=== PATIENT | male | born 1945 | race Caucasian/White ===

== ENCOUNTER 2016-12-15 09:57 | Emergency (ER) | payer MEDICARE, MEDICAID ==
[~2016-12-15] VITALS: Ht 185.4 cm; Wt 113.6 kg
[~2016-12-15 09:57] MED LIST: ASPI-664 PO; ATOR40TA68 PO; CARB1TAB47 PO; CHOL100062 PO; DOCU250C58 PO; ESCI20TA38 PO; GABA100C14 PO; ISOS10TA2 PO; LISI10TA2 PO; LORA-441 PO; METF500T4 PO; METO25TA7 PO; MIRT15TA5 PO; PANT40TA4 PO
[2016-12-15] MEDS ORDERED: ASPIRIN 325 MG TAB PO STA (09:59)
[2016-12-15 10:15] VITALS: Ht 185.4 cm; Wt 113.6 kg
[2016-12-15 10:21] VITALS: TEMP 98.6
[2016-12-15 10:29] LABS: ADD SCAN DIFF NO
[2016-12-15 10:34] LABS: BASOPHILS % 0.4 % (0.0-2.0); EOSINOPHILS # 0.1 10^3/ul (0.0-0.5); EOSINOPHILS % 1.9 % (0.0-7.0); HEMATOCRIT 35.9 % (42.0-52.0); HEMOGLOBIN 11.8 g/dl (14.0-18.0); LYMPHOCYTES # 2.1 10^3/ul (0.8-2.9); LYMPHOCYTES % 39.1 % (15.0-51.0); MEAN CORPUSCULAR HEMOGLOBIN 29.6 pg (29.0-33.0); MEAN CORPUSCULAR HGB CONC 32.9 g/dl (32.0-37.0); MEAN PLATELET VOLUME 10.6 fl (7.4-10.4); MONOCYTE # 0.5 10^3/ul (0.3-0.9); MONOCYTES % 8.5 % (0.0-11.0); NEUTROPHIL # 2.6 10^3/ul (1.6-7.5); NEUTROPHILS % 49.7 % (39.0-77.0); PLATELET COUNT 145 10^3/UL (140-415); RED BLOOD COUNT 3.99 10^6/ul (4.70-6.10); WHITE BLOOD COUNT 5.3 10^3/ul (4.8-10.8)
--- NOTE | 2016-12-15 10:35 | RADRPT ---
PROCEDURE: Chest x-ray CLINICAL INDICATION: Chest pain TECHNIQUE: Chest single view COMPARISON: 05/02/2016 FINDINGS: As before there is left chest dual lead pacemaker. Stable mild cardiomegaly and atherosclerotic aor tic calcification is seen. Ongoing mild interstitial CHF is identified. No confluent pneumonia see n. Costophrenic angles are sharp. IMPRESSION: 1. Mild cardiomegaly with ongoing mild interstitial CHF. 2. Atherosclerotic aortic calcification. 3. Pacemaker RPTAT: HH .Emanuel Day MD, Date Time Electronically viewed and signed by .Emanuel Day MD, on 12/15/2016 10:35 .W/
[2016-12-15 10:48] LABS: INR 0.9; PROTIME 12.1 Sec (12.2-14.2); PT RATIO 0.9
[2016-12-15 10:49] LABS: PARTIAL THROMBOPLASTIN TIME 28.8 Sec (25.0-35.0)
[2016-12-15 10:53] LABS: ANION GAP 16 (8-16); BLOOD UREA NITROGEN 21 mg/dl (7-20); CALCIUM 9.8 mg/dl (8.4-10.2); CARBON DIOXIDE 27 mmol/L (21-31); CHLORIDE 99 mmol/L (97-110); CREATININE 1.01 mg/dl (0.61-1.24); GLUCOSE 102 mg/dl (70-220); POTASSIUM 4.4 mmol/L (3.5-5.1); SODIUM 138 mmol/L (135-144)
[2016-12-15 11:05] LABS: B-TYPE NATRIURETIC PEPTIDE 1190 PG/ML (0-125)
[2016-12-15] MEDS ORDERED: METO25TA7 PO (11:06)
[2016-12-15] MEDS ORDERED: LISI10TA2 PO (11:06)
[2016-12-15] MEDS ORDERED: POTA20TA96 PO (11:07)
[2016-12-15] MEDS ORDERED: CHOL100062 PO (11:07)
[2016-12-15] MEDS ORDERED: FURO20TA3 PO (11:08)
[2016-12-15] MEDS ORDERED: OMEP20CA16 PO (11:09)
[2016-12-15 11:10] LABS: TROPONIN-I < 0.012 ng/ml (0.00-0.12)
[2016-12-15] MEDS ORDERED: GABA-528 PO (11:10)
[2016-12-15] MEDS ORDERED: FER325 PO (11:10)
[2016-12-15] MEDS ORDERED: morphine 4 MG/ML VIAL IV STA (12:05)
--- NOTE | 2016-12-15 14:20 | ERD ---
ER Documentation Chief Complaint Date/Time DATE: 12/15/16 TIME: 14:11 Chief Complaint 12/23 Chest pain x 1 hour HPI This 71-year-old male presents emergency room with substernal chest pain that does not radiate described as a pressure-like pain is been present for approximately an hour and 15 minutes now. He denies shortness of breath. Denies nausea and vomiting. I reviewed the patient's EMR and he does have a history of coronary artery disease and congestive heart failure. He had a negative Lexiscan done here in April ROS All systems reviewed and are negative except as per history of present illness. Medications Home Meds Reported Medications Ferrous Sulfate* (Ferrous Sulfate*) 325 Mg Tabec, 325 MG PO DAILY, TAB 12/15/16 Gabapentin* (Gabapentin*) 800 Mg Tablet, 800 MG PO TID, #90 TAB 12/15/16 Omeprazole* (Omeprazole*) 20 Mg Capsule.dr, 20 MG PO DAILY, #30 CAP 12/15/16 Furosemide* (Furosemide*) 20 Mg Tablet, 20 MG PO BID, #30 TAB 12/15/16 Potassium Chloride* (Potassium Chloride*) 20 Meq Tablet.er, 10 MEQ PO DAILY, TAB.SA 12/15/16 Cholecalciferol* (Vitamin D3*) 1,000 Unit Tablet, 1000 UNIT PO DAILY, TAB 12/15/16 Lisinopril* (Lisinopril*) 10 Mg Tablet, 10 MG PO DAILY, #30 TAB 12/15/16 Metoprolol Succinate* (Toprol XL*) 25 Mg Tab.sr.24h, 25 MG PO DAILY, #30 TAB 12/15/16 Metformin Hcl* (Metformin Hcl*) 500 Mg Tablet, 500 MG PO WITH BREAKFAST, #30 TAB 05/02/16 Atorvastatin* (Atorvastatin*) 40 Mg Tablet, 40 MG PO QHS, #30 TAB 05/02/16 Docusate Sodium* (Colace*) 250 Mg Capsule, 250 MG PO BID, #60 CAP 05/02/16 Pantoprazole* (Pantoprazole*) 40 Mg Tablet.dr, 40 MG PO DAILY, TAB 05/02/16 Carbidopa/Levodopa (CARBIDOPA-LEVO 25-250 MG ODT) 1 Each Tab.rapdis, 1 TAB PO QID, #90 TAB 05/02/16 Isosorbide Dinitrate* (Isosorbide Dinitrate*) 10 Mg Tablet, 10 MG PO TID, TAB 05/02/16 Aspirin* (Aspirin* EC) 81 Mg Tablet.dr, 81 MG PO DAILY, TAB 05/02/16 Discontinued Reported Medications Mirtazapine* (Mirtazapine*) 15 Mg Tablet, 15 MG PO HS, TAB 05/02/16 Cholecalciferol* (Vitamin D3*) 1,000 Unit Tablet, 2000 UNIT PO DAILY, TAB 05/02/16 Escitalopram Oxalate* (Escitalopram Oxalate*) 20 Mg Tablet, 20 MG PO DAILY, #30 TAB 05/02/16 Discontinued Scripts Lorazepam* (Ativan*) 0.5 Mg Tablet, 1 MG PO Q12 Y for ANXIETY, #30 TAB Prov:MARLO ROBLEDO MD 05/06/16 Gabapentin* (Gabapentin*) 100 Mg Capsule, 200 MG PO TID for 30 Days, CAP Prov:MARLO ROBLEDO MD 05/06/16 Allergies Allergies: Coded Allergies: No Known Allergies (Verified Allergy, Mild, 12/15/16) PMhx/Soc History of Surgery: Yes (CABG 15 years ago. Pacemaker) Anesthesia Reaction: No Hx Neurological Disorder: No Hx Respiratory Disorders: No Hx Cardiac Disorders: Yes (HTN) Hx Psychiatric Problems: No Hx Miscellaneous Medical Probl: No Hx Alcohol Use: Yes (Distant past.) Hx Substance Use: No Hx Tobacco Use: Yes (Distant past.) Smoking Status: Current some day smoker Physical Exam Vitals Vital Signs Date Time Temp Pulse Resp B/P Pulse Ox O2 Delivery O2 Flow Rate FiO2 12/15/16 13:01 87 17 147/76 100 Room Air 12/15/16 10:21 98.6 90 16 145/87 100 Room Air 12/15/16 10:20 Nasal Cannula 3 12/15/16 10:15 98.6 90 16 145/87 100 Physical Exam Const: [] No distress Head: Atraumatic Eyes: Normal Conjunctiva ENT: Normal External Ears, Nose and Mouth. Neck: Full range of motion..~ No meningismus. Resp: Clear to auscultation bilaterally, no rales Cardio: Regular rate and rhythm, no murmurs Abd: Soft, non tender, non distended. Normal bowel sounds Skin: No petechiae or rashes Back: No midline or flank tenderness Ext: No cyanosis, or edema Neur: Awake and alert and oriented 3, no focal deficits Psych: Normal Mood and Affect Result Diagram: 12/15/16 1018 12/15/16 1018 Results 24 hrs Laboratory Tests Test 12/15/16 10:18 12/15/16 12:25 White Blood Count 5.310^3/ul Red Blood Count 3.9910^6/ul Hemoglobin 11.8g/dl Hematocrit 35.9% Mean Corpuscular Volume 90.0fl Mean Corpuscular Hemoglobin 29.6pg Mean Corpuscular Hemoglobin Concent 32.9g/dl Red Cell Distribution Width 14.0% Platelet Count 09115^3/UL Mean Platelet Volume 10.6fl Neutrophils % 49.7% Lymphocytes % 39.1% Monocytes % 8.5% Eosinophils % 1.9% Basophils % 0.4% Nucleated Red Blood Cells % 0.0/100WBC Neutrophils # 2.610^3/ul Lymphocytes # 2.110^3/ul Monocytes # 0.510^3/ul Eosinophils # 0.110^3/ul Basophils # 0.010^3/ul Nucleated Red Blood Cells # 0.010^3/ul Prothrombin Time 12.1Sec Prothrombin Time Ratio 0.9 INR International Normalized Ratio 0.90 Activated Partial Thromboplast Time 28.8Sec Sodium Level 138mmol/L Potassium Level 4.4mmol/L Chloride Level 99mmol/L Carbon Dioxide Level 27mmol/L Anion Gap 16 Blood Urea Nitrogen 21mg/dl Creatinine 1.01mg/dl Glucose Level 102mg/dl Calcium Level 9.8mg/dl Troponin I < 0.012ng/ml < 0.012ng/ml B-Type Natriuretic Peptide 1190PG/ML Current Medications Medications (Trade) Dose Ordered Sig/Lele Route PRN Reason Start Time Stop Time Status Last Admin Dose Admin Aspirin (Aspirin) 325 mg ONCE STAT PO 12/15/16 09:59 12/15/16 10:02 DC 12/15/16 10:27 Morphine Sulfate (morphine) 4 mg ONCE STAT IV 12/15/16 12:05 12/15/16 12:06 DC 12/15/16 12:15 Procedures/MDM 71-year-old male with multiple risk factors for acute coronary syndrome with chest pain. His pain does not seem cardiac at this time. Repeat troponin drawn 4-1/2 hours after the patient's initiation of chest pain is negative. Does have evidence of mild congestive heart failure but does not have shortness of breath, tachypnea or hypoxia. States that he has Lasix at home that he takes. I called his primary care doctor, Dr. Robledo regarding admission. He states that the patient was worked up admission last week for chest pain that he presents frequently for chest pain and has a fondness for narcotic pain medication. Given the patient's recent negative cardiac studies he does not recommend admission. I told him I will get a repeat troponin to make sure it is negative greater than 4 hours out of the onset of chest pain and he agrees with this plan. Had Kwesi given the patient morphine. He had been given aspirin. He did receive 3 nitroglycerin in the ambulance without relief of chest pain. He did believe that the morphine reduced his chest pain significantly. I told him to return to emergency room immediately if he experiences return of his chest pain. EKG interpretation #2: Patient with demand pacemaker otherwise has atrial fibrillation, rate is 66, no ST elevations or depressions to suggest acute ischemia. Nonspecific ST and T-wave abnormality. EKG interpretation #1: Demand pacemaker with generalized rhythm of atrial fibrillation with some premature complexes, no ST elevations or depressions to suggest acute ischemia, it service delivery manager interpretation: Atrial fibrillation with occasional premature complexes with no other arrhythmia Chest x-ray interpretation: Engorgement of pulmonary vasculature sure this with mild CHF, poor inspiration, no infiltrates, no pneumothorax, no fractures Departure Diagnosis: Primary Impression: Chest pain Additional Impression: CHF (congestive heart failure) Condition: Stable Patient Instructions: Chest Pain, Uncertain Cause Additional Instructions: Call your primary care doctor TODAY for an appointment during the next 2-3 days.See the doctor sooner or return here if your condition worsens before your appointment time. FALGUNI DUTTA DO Dec 15, 2016 14:20
[2016-12-15 15:24] VITALS: BP 157/91; PULSE 80; RESP 17
== END 2016-12-15 15:25 | disposition home or self-care (01) ==
LOC: E/R 09:57
DX: R07.9 Chest pain, unspecified (principal); I50.9 Heart failure, unspecified; I10 Essential (primary) hypertension; F17.210 Nicotine dependence, cigarettes, uncomplicated; Z79.82 Long term (current) use of aspirin; Z79.84 Long term (current) use of oral hypoglycemic drugs; Z95.0 Presence of cardiac pacemaker; Z95.1 Presence of aortocoronary bypass graft
CPT/HCPCS: 71010; 80048; 83880; 84484; 85025; 85610; 85730; J2270; 36415; 93005; 96374

== ENCOUNTER 2016-12-15 21:31 | Observation (INO) | payer MEDICARE, MEDICAID ==
[~2016-12-15] VITALS: Ht 185.4 cm; Wt 108.8 kg
[~2016-12-15 21:31] MED LIST changes: +FER325 PO; +FURO20TA3 PO; +GABA-528 PO; +OMEP20CA16 PO; +POTA20TA96 PO
[2016-12-15 22:37] LABS: ADD SCAN DIFF NO
[2016-12-15 22:39] LABS: BASOPHILS % 0.6 % (0.0-2.0); EOSINOPHILS % 0.2 % (0.0-7.0); HEMATOCRIT 34.9 % (42.0-52.0); HEMOGLOBIN 11.3 g/dl (14.0-18.0); LYMPHOCYTES # 1.2 10^3/ul (0.8-2.9); LYMPHOCYTES % 22.9 % (15.0-51.0); MEAN CORPUSCULAR HGB CONC 32.4 g/dl (32.0-37.0); MEAN CORPUSCULAR VOLUME 89.5 fl (82.0-101.0); MEAN PLATELET VOLUME 10.6 fl (7.4-10.4); MONOCYTE # 0.4 10^3/ul (0.3-0.9); MONOCYTES % 7.4 % (0.0-11.0); NEUTROPHIL # 3.6 10^3/ul (1.6-7.5); NEUTROPHILS % 68.7 % (39.0-77.0); PLATELET COUNT 146 10^3/UL (140-415); RED CELL DISTRIBUTION WIDTH 14.1 % (11.5-14.5); WHITE BLOOD COUNT 5.2 10^3/ul (4.8-10.8)
[2016-12-15 22:54] LABS: INR 0.96; PROTIME 12.8 Sec (12.2-14.2)
[2016-12-15 22:55] LABS: PARTIAL THROMBOPLASTIN TIME 27.5 Sec (25.0-35.0)
[2016-12-15 22:57] LABS: ANION GAP 15 (8-16); BLOOD UREA NITROGEN 17 mg/dl (7-20); CALCIUM 9.4 mg/dl (8.4-10.2); CARBON DIOXIDE 26 mmol/L (21-31); CHLORIDE 100 mmol/L (97-110); CREATININE 0.89 mg/dl (0.61-1.24); GLUCOSE 134 mg/dl (70-220); POTASSIUM 3.8 mmol/L (3.5-5.1); SODIUM 137 mmol/L (135-144)
[2016-12-15 23:08] LABS: TROPONIN-I < 0.012 ng/ml (0.00-0.12)
--- NOTE | 2016-12-15 23:23 | RADRPT ---
PROCEDURE: Portable chest x-ray. CLINICAL INDICATION: Chest pain. TECHNIQUE: Portable AP view of the chest. COMPARISON: 05/02/2016. FINDINGS: No pulmonary edema or conolidation is identified. The patient is status post median sternotomy and C ABG. The cardiac silhouette is magnified. There are aortic calcifications. There is a left chest c ardiac pacemaker. No pleural effusion is seen. There is no pneumothorax. IMPRESSION: 1. No evidence of acute cardiopulmonary disease. 2. Aortic atherosclerosis. 3. Status post CABG. 4. Cardiac pacemaker. RPTAT: HTAR .Augie Pleitez MD, Date Time Electronically viewed and signed by .Augie Pleitez MD, on 12/15/2016 23:22 .R/
--- NOTE | 2016-12-15 23:35 | ERA ---
ER Documentation Chief Complaint Date/Time DATE: 12/15/16 TIME: 23:33 Chief Complaint PT HERE FOR LEFT SIDE CP AND ANXIETY , DC'D FROM [facility] TODAY HPI This is a 71-year-old male presents to the emergency room for evaluation of chest pain. This patient was seen earlier in the emergency room and had 2 troponins drawn which were negative and the patient was discharged back to his [facility]. The patient states that his chest pain is returned and it is centralized with radiation to his left arm. The patient denies any shortness of breath and came to the emergency room today for reevaluation. ROS All systems reviewed and are negative except as per history of present illness. Medications Home Meds Reported Medications Ferrous Sulfate* (Ferrous Sulfate*) 325 Mg Tabec, 325 MG PO DAILY, TAB 12/15/16 Gabapentin* (Gabapentin*) 800 Mg Tablet, 800 MG PO TID, #90 TAB 12/15/16 Omeprazole* (Omeprazole*) 20 Mg Capsule.dr, 20 MG PO DAILY, #30 CAP 12/15/16 Furosemide* (Furosemide*) 20 Mg Tablet, 20 MG PO BID, #30 TAB 12/15/16 Potassium Chloride* (Potassium Chloride*) 20 Meq Tablet.er, 10 MEQ PO DAILY, TAB.SA 12/15/16 Cholecalciferol* (Vitamin D3*) 1,000 Unit Tablet, 1000 UNIT PO DAILY, TAB 12/15/16 Lisinopril* (Lisinopril*) 10 Mg Tablet, 10 MG PO DAILY, #30 TAB 12/15/16 Metoprolol Succinate* (Toprol XL*) 25 Mg Tab.sr.24h, 25 MG PO DAILY, #30 TAB 12/15/16 Metformin Hcl* (Metformin Hcl*) 500 Mg Tablet, 500 MG PO WITH BREAKFAST, #30 TAB 05/02/16 Atorvastatin* (Atorvastatin*) 40 Mg Tablet, 40 MG PO QHS, #30 TAB 05/02/16 Docusate Sodium* (Colace*) 250 Mg Capsule, 250 MG PO BID, #60 CAP 05/02/16 Pantoprazole* (Pantoprazole*) 40 Mg Tablet.dr, 40 MG PO DAILY, TAB 05/02/16 Carbidopa/Levodopa (CARBIDOPA-LEVO 25-250 MG ODT) 1 Each Tab.rapdis, 1 TAB PO QID, #90 TAB 05/02/16 Isosorbide Dinitrate* (Isosorbide Dinitrate*) 10 Mg Tablet, 10 MG PO TID, TAB 05/02/16 Aspirin* (Aspirin* EC) 81 Mg Tablet.dr, 81 MG PO DAILY, TAB 05/02/16 Discontinued Reported Medications Mirtazapine* (Mirtazapine*) 15 Mg Tablet, 15 MG PO HS, TAB 05/02/16 Cholecalciferol* (Vitamin D3*) 1,000 Unit Tablet, 2000 UNIT PO DAILY, TAB 05/02/16 Escitalopram Oxalate* (Escitalopram Oxalate*) 20 Mg Tablet, 20 MG PO DAILY, #30 TAB 05/02/16 Discontinued Scripts Lorazepam* (Ativan*) 0.5 Mg Tablet, 1 MG PO Q12 Y for ANXIETY, #30 TAB Prov:MARLO ROBLEDO MD 05/06/16 Gabapentin* (Gabapentin*) 100 Mg Capsule, 200 MG PO TID for 30 Days, CAP Prov:MARLO ROBLEDO MD 05/06/16 Allergies Allergies: Coded Allergies: No Known Allergies (Verified Allergy, Mild, 12/15/16) PMhx/Soc History of Surgery: Yes (CABG 15 years ago. Pacemaker) Anesthesia Reaction: No Hx Neurological Disorder: No Hx Respiratory Disorders: No Hx Cardiac Disorders: Yes (HTN) Hx Psychiatric Problems: No Hx Miscellaneous Medical Probl: No Hx Alcohol Use: Yes (Distant past.) Hx Substance Use: No Hx Tobacco Use: Yes (Distant past.) Smoking Status: Former smoker Physical Exam Vitals Vital Signs Date Time Temp Pulse Resp B/P Pulse Ox O2 Delivery O2 Flow Rate FiO2 12/15/16 22:29 74 17 127/67 99 Room Air 12/15/16 22:27 Nasal Cannula 2 12/15/16 21:43 98.6 94 20 131/79 98 Physical Exam INITIAL VITAL SIGNS: Reviewed by me GENERAL: The patient is well developed and appropriate for usual state of health in no apparent distress HEENT: Pupils equal, round, and reactive to light. EOMI. There is no scleral icterus. NECK: C-spine is soft and supple, there is no meningismus. There is no cervical lymphadenopathy. LUNGS: Clear to auscultation bilaterally. There are no rales, wheezes or rhonchi. HEART: Regular rate and rhythm, no murmurs, clicks, rubs or gallops. ABDOMEN: Soft, non-tender, non-distended. There are bowel sounds in all four quadrants. No rebound or guarding. EXTREMITIES: There is no peripheral cyanosis or edema. No focal swelling or erythema. NEUROLOGICAL: The patient moves all four extremities with 5/5 strength. Cranial nerves II - XII are intact. Normal gait. Alert and oriented SKIN: There is no apparent rash or petechiae. HEME/LYMPHATIC: There is no evidence of excessive bruising or lymphedema. PSYCHIATRIC: The patient does not appear anxious or depressed. Result Diagram: 12/15/16222412/15/162224 Results 24 hrs Laboratory Tests Test 12/15/16 22:25 White Blood Count 5.210^3/ul Red Blood Count 3.9010^6/ul Hemoglobin 11.3g/dl Hematocrit 34.9% Mean Corpuscular Volume 89.5fl Mean Corpuscular Hemoglobin 29.0pg Mean Corpuscular Hemoglobin Concent 32.4g/dl Red Cell Distribution Width 14.1% Platelet Count 95630^3/UL Mean Platelet Volume 10.6fl Neutrophils % 68.7% Lymphocytes % 22.9% Monocytes % 7.4% Eosinophils % 0.2% Basophils % 0.6% Nucleated Red Blood Cells % 0.0/100WBC Neutrophils # 3.610^3/ul Lymphocytes # 1.210^3/ul Monocytes # 0.410^3/ul Eosinophils # 0.010^3/ul Basophils # 0.010^3/ul Nucleated Red Blood Cells # 0.010^3/ul Prothrombin Time 12.8Sec Prothrombin Time Ratio 1.0 INR International Normalized Ratio 0.96 Activated Partial Thromboplast Time 27.5Sec Sodium Level 137mmol/L Potassium Level 3.8mmol/L Chloride Level 100mmol/L Carbon Dioxide Level 26mmol/L Anion Gap 15 Blood Urea Nitrogen 17mg/dl Creatinine 0.89mg/dl Glucose Level 134mg/dl Calcium Level 9.4mg/dl Troponin I < 0.012ng/ml Procedures/[facility] EKG: Rate/Rhythm: [Normal Sinus Rhythm] QRS, ST, T-waves: [No changes consistent w/ acute ischemia] Impression: [No evidence of ischemia or arrhythmia] Chest X-ray 1V Interpreted by me: Soft Tissue: No acute abnormalities Bones: No acute abnormalities Mediastinum/Cardiac Silhouette/Lungs: [No acute abnormalities] This 71-year-old male presents to the emergency room for evaluation of chest pain. He was seen earlier in the emergency room had negative troponins and was discharged. When I evaluated this patient he was hemodynamically stable. His first troponin is negative, EKG is nonischemic. Chest x-ray is clear. However given his age and his repeat visit to the emergency room within a 12 hour period for the same complaint this patient will be placed in for admission. I did speak to his primary care physician, Dr. Robledo who agrees the patient can be admitted at this time to telemetry under observation for serial troponins Smoking Cessation Therapy: Pt. was lectured for greater than 3 minutes on the health risks of continued smoking and the benefits of cessation. Departure Diagnosis: Primary Impression: Chest pain Additional Impressions: Normocytic anemia Tobacco abuse Condition: Stable CINDY NAZARIO DO Dec 15, 2016 23:35
[2016-12-16] VITALS (9 sets, daily range): BP systolic 134–144; BP diastolic 65–86; PULSE 63–86; RESP 18–20; Ht 185.4 cm; Wt 108.8 kg
[2016-12-16] MEDS ORDERED: NACL 0.9% 3 ML SYG IV SCH
[2016-12-16] MEDS ORDERED: ZOLPIDEM 5 MG TAB PO PRN
[2016-12-16] MEDS ORDERED: NITROGLYCERIN (SL) 0.4 MG TAB SL PRN
[2016-12-16] MEDS ORDERED: MAGNESIUM HYDROXIDE 30ML CUP PO PRN
[2016-12-16] MEDS ORDERED: ACETAMINOPHEN 325 MG TAB PO PRN ×2
[2016-12-16] MEDS ORDERED: ONDANSETRON 4 MG INJ IV PRN
[2016-12-16] MEDS ORDERED: DOCUSATE SODIUM 100 MG CAP PO PRN
[2016-12-16] MEDS ORDERED: LORAZEPAM 0.5 MG TAB PO ONE (00:30)
[2016-12-16] MEDS: HYDROmorphONE 1 MG/ML SYG IV PRN ×5 (01:00→20:44)
[2016-12-16] MEDS ORDERED: LORAZEPAM 1 MG TAB PO ONE (05:00)
[2016-12-16 06:06] LABS: CREATINE KINASE 65 IU/L (23-200)
[2016-12-16 06:31] LABS: CK-MB 1.59 ng/ml (0.0-2.4); TROPONIN-I < 0.012 ng/ml (0.00-0.12)
[2016-12-16] MEDS: PANTOPRAZOLE (EC) 40 MG TAB PO SCH (06:35)
[2016-12-16] MEDS: DOCUSATE SODIUM 250 MG CAP PO SCH ×2 (09:39→20:49)
[2016-12-16] MEDS: ONDANSETRON 4 MG INJ IV PRN (09:39)
[2016-12-16] MEDS: ASPIRIN (EC) 81 MG TAB PO SCH (09:39)
[2016-12-16] MEDS: LISINOPRIL 10 MG TAB PO SCH (09:39)
[2016-12-16] MEDS: METOPROLOL (XL) 25 MG TAB PO SCH (09:40)
[2016-12-16] MEDS: ENOXAPARIN 40 MG/0.4 ML SYG SC SCH (09:43)
[2016-12-16] MEDS: LORAZEPAM 0.5 MG TAB PO PRN ×2 (09:44→21:37)
[2016-12-16] MEDS: oxyCODONE 15 MG TAB PO PRN ×3 (10:36→22:33)
[2016-12-16] MEDS: CHOLECALCIFEROL 1,000 UNIT TAB PO SCH (12:21)
[2016-12-16] MEDS: GABAPENTIN 400 MG CAP PO SCH ×3 (12:21→20:49)
[2016-12-16] MEDS: ISOSORBIDE DINITRATE 10 MG TAB PO SCH ×2 (12:22→20:49)
[2016-12-16 12:30] LABS: CREATINE KINASE 59 IU/L (23-200)
[2016-12-16 12:44] LABS: CK-MB 1.32 ng/ml (0.0-2.4); TROPONIN-I < 0.012 ng/ml (0.00-0.12)
--- NOTE | 2016-12-16 15:13 | HP ---
DATE OF ADMISSION: 12/15/2016 REASON FOR ADMISSION: Chest pain, rule out acute coronary syndrome. HISTORY OF PRESENT ILLNESS: The patient is a very unfortunate 71-year-old obese male with history of coronary artery disease, status post CABG, history of diabetes mellitus, diabetic neurop athy on high dose narcotics given by his pain specialist, as he has a tendency to be opioid dependen t. Also, history of atrial fibrillation and recurrent falls. He is not on full anticoagulation sec ondary to falls in the past. We only placed him on aspirin. The patient also has history of mild C KD, CHF, peripheral vascular disease, history of skin cancer and hypertension, who currently resides at the assisted living facility at [facility]. The patient was in usual state of healt h up until the day of admission when he was complaining of substernal chest pain. He was brought in to the ER, troponin x2 was negative and he was discharged after we reviewed his history and he had a negative nuclear stress test back in April 2016. At that time, it shows no evidence of stress-in duced ischemia with EF of 64%. The patient returned back to the assisted living facility and compla ined of chest pain, so he was brought in again the same day back to the ER. This time, the ER physi jasmine felt the need to admit the patient, despite ongoing negative troponin. Upon evaluation of the patient, patient continues to complain of vague chest pain, also complained of a neuropathy of the h ands and feet, which is chronic in nature. Again, he somewhat has a tendency to be dependent on opi oids and is requesting Dilaudid and oxycodone throughout the clock. Otherwise, he denies any fever or chills, denies any shortness of breath. Denies any weakness or numbness. The patient is admitte d for further care. PAST MEDICAL HISTORY: Includes coronary artery disease, status post CABG, history of diabetes sky itus, diabetic neuropathy, atrial fibrillation, recurrent falls, CKD, CHF, peripheral vascular disea se, skin cancer and hypertension, also some psych problems. SURGICAL HISTORY: Coronary artery bypass graft, skin cancer excision. ALLERGIES: NO KNOWN DRUG ALLERGIES. FAMILY HISTORY: Noncontributory. SOCIAL HISTORY: He is a former pipe smoker. Patient previously has used cocaine. He is retired. Lives in assisted living facility. MEDICATIONS: Include the followin. Aspirin 81 mg daily. 2. Isosorbide dinitrate 10 mg t.i.d. 3. Carbidopa/levodopa 25/250 q.i.d. 4. Protonix 40 mg daily. 5. Colace 250 mg b.i.d. 6. Atorvastatin 40 mg daily at night. 7. Metformin 500 mg q. breakfast. 8. Metoprolol 75 mg daily. 9. Lisinopril 10 mg daily. 10. Vitamin D3 12,000 daily. 11. KCl 10 mEq daily. 12. Lasix 20 mg b.i.d. 13. Omeprazole 20 mg daily. 14. Gabapentin 800 mg t.i.d. 15. Ferrous sulfate 325 daily. Some of these medications, I think are not the correct ones. This is I think an old reconciliation . PHYSICAL EXAMINATION: VITAL SIGNS: Temperature is 98.3, pulse 77, respiration is 19, blood pressure 138/83, saturation is 98% on room air. GENERAL: The patient is in no distress. The patient is pale. He has multiple skin lesions of the scalp. CARDIOVASCULAR: S1 and S2 irregularly irregular. LUNGS: Decreased bilaterally, otherwise clear. ABDOMEN: Soft, distended. EXTREMITIES: There is trace edema of the lower extremities. EKG: Shows atrial fibrillation with PACs, cannot rule out anterior infarct, age undetermined, at 73 beats per minute. Upon evaluation of previous imaging tests, chest x-ray done yesterday on admissi on shows no evidence of acute cardiopulmonary disease, aortic atherosclerosis, status post CABG, car diac pacemaker. Stress test shows on 05/04/2016 shows no evidence of stress induced ischemia, no wa ll abnormalities, left ventricular ejection fraction at 64%. ASSESSMENT AND PLAN: This is a very unfortunate 71-year-old obese male with history of di abetes mellitus, neuropathy, coronary artery disease, status post coronary artery bypass grafting, h istory of pacemaker, presented with chest pain. 1. Chest pain. Serial troponins are negative. Recent stress test is negative. This may be angina and musculoskeletal pain, etc. Because of his risk factors and the current complaints, we will con sult cardiology for further recommendations. Continue aspirin, beta blockers, nitroglycerin as need ed, O2 support. 2. Atrial fibrillation, rate controlled, not fully anticoagulated secondary to falls. Continue asp irin for now. Continue beta blockers. 3. Parkinsonism. Continue Sinemet. 4. Peripheral neuropathy. The patient is on opioids. The patient will be placed on Neurontin as w ell or Lyrica and we will follow. 5. Diabetes mellitus. He has been well controlled even without medications. Observe insulin slidi ng scale for now. May resume his metformin upon discharge. 6. Psychiatric, previously has been on Lexapro. 7. Anemia. Hemoglobin and hematocrit outpatient followup is advised. 8. The patient will be placed on deep vein thrombosis prophylaxis and gastrointestinal prophylaxis. We will follow. Dictated By: MARLO WILKINS/RADHA Conf#: [id number] DID#: [id number]
[2016-12-16] MEDS: ESCITALOPRAM 10 MG TAB PO SCH (16:33)
[2016-12-16] MEDS ORDERED: ATORVASTATIN 40 MG TAB PO SCH (21:00)
[2016-12-17] VITALS (7 sets, daily range): BP systolic 119–137; BP diastolic 65–74; PULSE 59–104; RESP 18–19
[2016-12-17] MEDS: HYDROmorphONE 1 MG/ML SYG IV PRN ×2 (01:55→09:08)
[2016-12-17] MEDS: PANTOPRAZOLE (EC) 40 MG TAB PO SCH (05:26)
[2016-12-17] MEDS: oxyCODONE 15 MG TAB PO PRN ×2 (05:27→11:33)
[2016-12-17] MEDS: DOCUSATE SODIUM 250 MG CAP PO SCH (09:06)
[2016-12-17] MEDS: GABAPENTIN 400 MG CAP PO SCH ×2 (09:06→12:02)
[2016-12-17] MEDS: LISINOPRIL 10 MG TAB PO SCH (09:06)
[2016-12-17] MEDS: ASPIRIN (EC) 81 MG TAB PO SCH (09:06)
[2016-12-17] MEDS: CHOLECALCIFEROL 1,000 UNIT TAB PO SCH (09:06)
[2016-12-17] MEDS: LORAZEPAM 0.5 MG TAB PO PRN (09:06)
[2016-12-17] MEDS: ESCITALOPRAM 10 MG TAB PO SCH (09:06)
[2016-12-17] MEDS: ISOSORBIDE DINITRATE 10 MG TAB PO SCH ×2 (09:07→12:02)
[2016-12-17] MEDS: METOPROLOL (XL) 25 MG TAB PO SCH (09:07)
[2016-12-17] MEDS: ONDANSETRON 4 MG INJ IV PRN (09:08)
[2016-12-17] MEDS: ENOXAPARIN 40 MG/0.4 ML SYG SC SCH (09:12)
[2016-12-17] MEDS ORDERED: LORAZEPAM 0.5 MG TAB PO PRN (12:30)
--- NOTE | 2016-12-17 12:32 | PDOCDIS ---
Discharge Instructions CONDITION Patient Condition: Stable ACTIVITY: Activity Restrictions: Slowly Increase Activity FOLLOW UP/APPOINTMENTS Appointments follow up with Dr. Blackman for pacemaker check, see prescriptions and reconciliation MARLO ROMAN MD Dec 17, 2016 12:32
[2016-12-17] MEDS ORDERED: FURO20TA3 PO (12:34)
[2016-12-17] MEDS ORDERED: LORA-441 PO (12:34)
[2016-12-17] MEDS ORDERED: ESCI10TA48 PO (12:34)
[2016-12-17] MEDS ORDERED: ASPI325T4 PO (12:39)
--- NOTE | 2016-12-17 19:04 | DS ---
DATE OF ADMISSION: 12/15/2016 DATE OF DISCHARGE: 12/17/2016 REASON FOR ADMISSION: Chest pain, rule out acute coronary syndrome. HOSPITAL COURSE: The patient is a 71-year-old male with history of coronary artery diseas e, status post CABG, history of diabetes mellitus, diabetic neuropathy on high dose narcotics given by his pain specialist and has a tendency for opiate dependency. Also, history of atrial fibrillati on with frequent falls, not fully anticoagulated because of that, as he was admitted multiple times in the past for injuries regarding falls. He has been now on aspirin. Also, he has history of mild CKD, CHF, peripheral vascular disease, skin cancer, hypertension. The patient currently resides at [facility] living [facility]. In addition, he has a pacemaker. The patient has been compl aining of chest pain. It was decided to send him to the hospital. Troponins were negative, but it was decided to admit him, as he presented to the ER twice in the same day. Upon admission, serial t roponins remained negative. I consulted Dr. Blackman. The patient feels that his tremor and numbness is likely related to neuropathy from his diabetes and anxiety. The patient acknowledges anxiety an d requests medications, so I started the patient on Lexapro 10 mg daily and Ativan p.r.n. The patie nt is overall feeling better, so my plan is to discharge him. The patient was placed under observat ion. Temperature 98.3, pulse 66, respirations 19, blood pressure 119/65, saturation 97% on room air . The patient did undergo a nuclear stress test back in April 2016 and it was completely normal. Per cardiology, no further cardiac workup is needed. I will adjust some of his medications. We wi ll increase the aspirin from 81 to 325, but will not fully anticoagulate him because of the falls. The patient is tolerating his diet and overall feeling better. DISCHARGE MEDICATIONS: The patient will be discharged back to assisted living facility with the [facility] medications: 1. Aspirin 325 daily. 2. Lexapro 10 mg daily. 3. Ativan 0.5 q.8h. p.r.n. for anxiety. 4. Lipitor 40 mg at bedtime. 5. Carbidopa/levodopa 25/250 q.i.d. 6. Vitamin D3 at 1000 daily. 7. Colace 250 b.i.d. 8. Ferrous sulfate ____ daily. 9. Gabapentin 800 t.i.d. 10. Isosorbide dinitrate 10 mg t.i.d. 11. Lisinopril 10 mg daily. 12. Metoprolol 25 daily. 12. Omeprazole 20 mg daily. 13. Protonix 40 mg daily. 14. Lasix 20 mg daily. FINAL DIAGNOSES: 1. Chest pain, rule out acute coronary syndrome. 2. Paroxysmal atrial fibrillation. 3. Morbidly obese state with a BMI of 31.6. 4. History of diabetes mellitus, controlled without medication. 5. Severe diabetic neuropathy. 6. Anxiety disorder. 7. Congestive heart failure. 8. History of coronary artery disease, status post coronary artery bypass graft. 9. Recurrent falls. 10. History of skin cancer. CONDITION ON DISCHARGE: The patient discharged in fair condition. DIET: Two-gram sodium. ACTIVITY: As tolerated. Fall precautions. DISCHARGE INSTRUCTIONS: Any recurrent problems, to call 911 or go to nearest emergency department. Dictated By: MARLO WILKINS/RADHA Conf#: [id number] DID#: [id number]
--- NOTE | 2016-12-18 08:17 | CONS ---
DATE OF ADMISSION: 12/15/2016 DATE OF CONSULTATION: 12/17/2016 TYPE OF CONSULTATION: Pulmonary. REFERRING PHYSICIAN: Dr. Poncho Robledo. REASON FOR EVALUATION: Chest pain, history of pacemaker placement. HISTORY OF PRESENT ILLNESS: Mr. Montes De Oca is a pleasant 71-year-old gentleman known to me from multiple prior admissions, with history of hypertension, dyslipidemia, history of coronary artery disease. He had a history of pacemaker placed a while ago as well as a stress test, cardiac, on 05/04/2016, w hich showed preserved ejection fraction with no ischemia. The patient comes to the hospital now for evaluation of reported chest pain. He is chest pain free. He already ruled out for acute myocardi al infarction. Given recent stress test, I do not think any further risk stratification is warrante d. We will continue to follow the patient for now, possibly as an outpatient. The patient says ting t he has a pacemaker and it has not been checked recently. I think there is no evidence of instabil ity now from pacemaker function. It is reasonable to check the pacemaker in the office and we will try to facilitate outpatient followup in order to expedite discharge. PAST MEDICAL HISTORY: 1. Hypertension. 2. Dyslipidemia. 3. History of chest pain. 4. History of negative stress test in April 2016 with EF of 64%. 5. History of psychiatric illness. 6. History of diabetes. 7. History of peripheral vascular disease. 8. History of atrial fibrillation. ALLERGIES: NO KNOWN DRUG ALLERGIES. SOCIAL HISTORY: The patient does not smoke, does not drink, does not use any drugs. FAMILY HISTORY: Negative for sudden cardiac or premature coronary artery disease. MEDICATIONS: Here include: 1. Lorazepam. 2. Lexapro. 3. Lipitor 40 mg. 4. Lovenox 30 mg subq b.i.d. 5. Aspirin. 6. . 7. Gabapentin. 8. Isosorbide. 9. Metoprolol 25 mg 10. IV flush. 11. Lorazepam. 12. Nitroglycerin. 13. Magnesium hydroxide. REVIEW OF SYSTEMS HISTORY: CONSTITUTIONAL: No fevers, no chills, no shortness of breath. No recent weight change. HEENT: No change in vision or hearing. CARDIAC: No chest pain reported. RESPIRATORY: Short of breath. GASTROINTESTINAL: No nausea, vomiting, diarrhea, constipation. GENITOURINARY: No dysuria, hematuria. NEUROLOGIC: No focal neurologic deficits. HEMATOLOGIC: History of bleeding. PSYCHIATRIC: History of psychiatric illness. PHYSICAL EXAMINATION: VITAL SIGNS: Temperature is 98.7, heart rate , blood pressure 119/65. GENERAL: He is a well-nourished gentleman in no acute distress, alert and oriented x3, aware of his condition. HEAD: Normocephalic, atraumatic. Eyes anicteric. NECK: Supple. JVD 6-7 cm. No lymphadenopathy. HEART: Regular with soft holosystolic murmur at the apex. PMI is negative stress test, no S3. LUNGS: Coarse at bases. ABDOMEN: Distended, bowel sounds are present. There is no hepatosplenomegaly. GENITOURINARY: No cyanosis, clubbing, sutures, cyanosis, or edema. LABORATORY DATA: ECG read by me shows atrial fibrillation with paced rhythm. White blood cell coun t of 5.2, hemoglobin 0.3, platelets 146. INR is 0.96, sodium , potassium 3.8. His BUN is 60, creatinine at 0.8, troponin 0.012. ASSESSMENT AND PLAN: 1. Chest pain. The patient has reported chest pain, now resolved. He ruled out for acute myocardi al infarction, had a negative stress test in April 2016. No further recertification is warranted. 2. Atrial fibrillation. The patient has history of atrial fibrillation, not anticoagulated now. W e will discuss with Dr. Robledo if there is a contraindication. Unless there is a contraindication, w ill consider full anticoagulation. 2. Pacemaker. The patient has history of pacemaker, he is 100% paced now. According to the patien t, he has not had a pacemaker check in several years. We will facilitate outpatient basis check. 3. Coronary artery disease, no chest pain reported. Continue medical optimization is warranted. 4. Psychiatric illness. Continue to adjust therapy as needed. I would like to thank Dr. Robledo for referring this patient for my evaluation. Dictated By: MERON MCDONNELL MD ML/NTS Conf#: [id number] DID#: [id number]
== END 2016-12-17 15:00 | disposition home or self-care (01) ==
LOC: E/R 21:31 → MS4 23:32
PROVIDERS: ADMIT Internal Medicine; ATTEND Internal Medicine
DX: R07.9 Chest pain, unspecified (principal); I25.10 Atherosclerotic heart disease of native coronary artery without angina pectoris; Z95.1 Presence of aortocoronary bypass graft; E11.22 Type 2 diabetes mellitus with diabetic chronic kidney disease; I13.0 Hypertensive heart and chronic kidney disease with heart failure and stage 1 through stage 4 chronic kidney disease, or unspecified chronic kidney disease; N18.9 Chronic kidney disease, unspecified; I50.9 Heart failure, unspecified; E11.40 Type 2 diabetes mellitus with diabetic neuropathy, unspecified; E66.01 Morbid (severe) obesity due to excess calories; Z68.31 Body mass index [BMI] 31.0-31.9, adult; I48.0 Paroxysmal atrial fibrillation; D64.9 Anemia, unspecified; F99 Mental disorder, not otherwise specified; G20 Parkinson's disease; F41.9 Anxiety disorder, unspecified; Z85.828 Personal history of other malignant neoplasm of skin; Z95.0 Presence of cardiac pacemaker; Z87.891 Personal history of nicotine dependence; Z79.82 Long term (current) use of aspirin; Z79.84 Long term (current) use of oral hypoglycemic drugs; Z91.81 History of falling
CPT/HCPCS: 36415; 71010; 80048; 82550; 82553; 84484; 85025; 85610; 85730; 93005; 96372; 96374; 96375; 96376; 99285; G0378; J1170; J1650; J2405; 99217

== ENCOUNTER 2017-02-17 17:22 | Emergency (ER) | payer MEDICAID, MEDICARE ==
[~2017-02-17] VITALS: Ht 185.4 cm; Wt 115.0 kg
[~2017-02-17 17:22] MED LIST changes: -ASPI-664 PO; +ASPI325T4 PO; +ESCI10TA48 PO; -ESCI20TA38 PO; -GABA100C14 PO; -METF500T4 PO; -MIRT15TA5 PO; -POTA20TA96 PO
[2017-02-17 17:27] VITALS: Ht 185.4 cm; Wt 115.0 kg
[2017-02-17] MEDS ORDERED: NITROGLYCERIN 2% 1 GM OINT PKT TD STA (17:29)
[2017-02-17] MEDS ORDERED: NITROGLYCERIN (SL) 0.4 MG TAB SL PRN (17:30)
[2017-02-17 17:55] LABS: BASOPHILS % 0.2 % (0.0-2.0); HEMATOCRIT 34.9 % (42.0-52.0); HEMOGLOBIN 11.6 g/dl (14.0-18.0); LYMPHOCYTES # 0.7 10^3/ul (0.8-2.9); LYMPHOCYTES % 12.8 % (15.0-51.0); MEAN CORPUSCULAR HGB CONC 33.2 g/dl (32.0-37.0); MEAN CORPUSCULAR VOLUME 90.2 fl (82.0-101.0); MEAN PLATELET VOLUME 10.8 fl (7.4-10.4); MONOCYTE # 0.2 10^3/ul (0.3-0.9); MONOCYTES % 2.9 % (0.0-11.0); NEUTROPHIL # 4.6 10^3/ul (1.6-7.5); NEUTROPHILS % 83.7 % (39.0-77.0); PLATELET COUNT 151 10^3/UL (140-415); RED BLOOD COUNT 3.87 10^6/ul (4.70-6.10); WHITE BLOOD COUNT 5.5 10^3/ul (4.8-10.8)
--- NOTE | 2017-02-17 17:59 | RADRPT ---
PROCEDURE: XR Chest. CLINICAL INDICATION: Chest Pain. TECHNIQUE: Single frontal chest x-ray. COMPARISON: 05/02/2016 FINDINGS: The lungs are clear of acute infiltrates, edema, effusions, or masses. Sternotomy wires and CABG cli ps are present. Left-sided dual chamber cardiac pacer in place.. Cardiomegaly with calcific athero sclerosis of the aorta is again noted.. The osseous structures are intact. IMPRESSION: No acute cardiopulmonary disease. Cardiomegaly status post CABG with left-sided cardiac pacer. RPTAT: QQ .Dominick Iglesias MD, Date Time Electronically viewed and signed by .Dominick Iglesias MD, MD on 02/17/2017 17:59 .L/
[2017-02-17 18:14] LABS: INR 0.98; PARTIAL THROMBOPLASTIN TIME 28.5 Sec (25.0-35.0)
[2017-02-17 18:40] LABS: ANION GAP 23 (8-16); BLOOD UREA NITROGEN 27 mg/dl (7-20); CALCIUM 9.8 mg/dl (8.4-10.2); CARBON DIOXIDE 25 mmol/L (21-31); CHLORIDE 97 mmol/L (97-110); CREATININE 1.42 mg/dl (0.61-1.24); GLUCOSE 138 mg/dl (70-220); POTASSIUM 4.7 mmol/L (3.5-5.1); SODIUM 140 mmol/L (135-144)
[2017-02-17 18:53] LABS: TROPONIN-I < 0.012 ng/ml (0.00-0.12)
[2017-02-17 19:05] VITALS: BP 141/92; PULSE 90
--- NOTE | 2017-02-17 19:33 | ERD ---
ER Documentation Chief Complaint Date/Time DATE: 02/17/17 TIME: 19:30 Chief Complaint BIB RA FOR CHEST PAIN X 40 MTS , ASA 162 MG , NITRO SPRAY X 3 HPI Patient is a 71-year-old male with hypertension diabetes who presents with chest pain. He was brought in by ambulance. He came from a nursing facility and he does have a history of psychiatric disease. He is complaining of chest pain which started 1 hour ago. It is left-sided. It is constant. He was given aspirin nitroglycerin by paramedics. Upon review of old medical records the patient has multiple visits to the ER for the same and was admitted for chest pain in April 2016. Review of the emergency department information exchange system shows 2 separate emergency departments that he does visit including [facility]. ROS All systems reviewed and are negative except as per history of present illness. Medications Home Meds Active Scripts Aspirin* (Aspirin*) 325 Mg Tablet, 325 MG PO DAILY for 30 Days, TAB Prov:MARLO ROBLEDO MD 12/17/16 Escitalopram Oxalate* (Escitalopram Oxalate*) 10 Mg Tablet, 10 MG PO DAILY for 30 Days, TAB Prov:MARLO ROBLEDO MD 12/17/16 Lorazepam* (Ativan*) 0.5 Mg Tablet, 0.5 MG PO Q8H Y for ANXIETY for 30 Days, TAB Prov:MARLO ROBLEDO MD 12/17/16 Furosemide* (Furosemide*) 20 Mg Tablet, 20 MG PO DAILY, #30 TAB Prov:MARLO ROBLEDO MD 12/17/16 Reported Medications Ferrous Sulfate* (Ferrous Sulfate*) 325 Mg Tabec, 325 MG PO DAILY, TAB 12/15/16 Gabapentin* (Gabapentin*) 800 Mg Tablet, 800 MG PO TID, #90 TAB 12/15/16 Omeprazole* (Omeprazole*) 20 Mg Capsule.dr, 20 MG PO DAILY, #30 CAP 12/15/16 Cholecalciferol* (Vitamin D3*) 1,000 Unit Tablet, 1000 UNIT PO DAILY, TAB 12/15/16 Lisinopril* (Lisinopril*) 10 Mg Tablet, 10 MG PO DAILY, #30 TAB 12/15/16 Metoprolol Succinate* (Toprol XL*) 25 Mg Tab.sr.24h, 25 MG PO DAILY, #30 TAB 12/15/16 Atorvastatin* (Atorvastatin*) 40 Mg Tablet, 40 MG PO QHS, #30 TAB 10/18/16 Docusate Sodium* (Colace*) 250 Mg Capsule, 250 MG PO BID, #60 CAP 05/02/16 Pantoprazole* (Pantoprazole*) 40 Mg Tablet.dr, 40 MG PO DAILY, TAB 05/02/16 Carbidopa/Levodopa (CARBIDOPA-LEVO 25-250 MG ODT) 1 Each Tab.rapdis, 1 TAB PO QID, #90 TAB 05/02/16 Isosorbide Dinitrate* (Isosorbide Dinitrate*) 10 Mg Tablet, 10 MG PO TID, TAB 05/02/16 Allergies Allergies: Coded Allergies: No Known Allergies (Verified Allergy, Mild, 12/15/16) PMhx/Soc History of Surgery: Yes (PPM, CABG) Anesthesia Reaction: No Hx Neurological Disorder: No Hx Respiratory Disorders: No Hx Cardiac Disorders: Yes (HTN, OK, CARDIAC STENTS) Hx Psychiatric Problems: Yes (ETOH, ANXIETY, DEPRESSION) Hx Miscellaneous Medical Probl: Yes (SMOKING) Hx Alcohol Use: Yes Hx Substance Use: No (CHRONIC PRESCRIBED OPIATES) Hx Tobacco Use: Yes Smoking Status: Never smoker FmHx Family History: No coronary disease Physical Exam Vitals Vital Signs Date Time Temp Pulse Resp B/P Pulse Ox O2 Delivery O2 Flow Rate FiO2 02/17/17 19:05 90 141/92 100 Nasal Cannula 2.0 02/17/17 18:10 85 142/82 98 Nasal Cannula 2.0 02/17/17 17:30 Nasal Cannula 2 02/17/17 17:27 98.5 84 18 148/81 98 Physical Exam Const: No acute distress Head: Atraumatic Eyes: Normal Conjunctiva ENT: Normal External Ears, Nose and Mouth. Neck: Full range of motion..~ No meningismus. Resp: Clear to auscultation bilaterally Cardio: Regular rate and rhythm, no murmurs Abd: Soft, non tender, non distended. Normal bowel sounds Skin: No petechiae or rashes Back: No midline or flank tenderness Ext: No cyanosis, or edema Neur: Awake and alert Psych: Normal Mood and Affect Result Diagram: 02/17/17 1730 02/17/17 1730 Results 24 hrs Laboratory Tests Test 02/17/17 17:30 White Blood Count 5.510^3/ul Red Blood Count 3.8710^6/ul Hemoglobin 11.6g/dl Hematocrit 34.9% Mean Corpuscular Volume 90.2fl Mean Corpuscular Hemoglobin 30.0pg Mean Corpuscular Hemoglobin Concent 33.2g/dl Red Cell Distribution Width 13.0% Platelet Count 04793^3/UL Mean Platelet Volume 10.8fl Neutrophils % 83.7% Lymphocytes % 12.8% Monocytes % 2.9% Eosinophils % 0.0% Basophils % 0.2% Nucleated Red Blood Cells % 0.0/100WBC Neutrophils # 4.610^3/ul Lymphocytes # 0.710^3/ul Monocytes # 0.210^3/ul Eosinophils # 0.010^3/ul Basophils # 0.010^3/ul Nucleated Red Blood Cells # 0.010^3/ul Prothrombin Time 13.0Sec Prothrombin Time Ratio 1.0 INR International Normalized Ratio 0.98 Activated Partial Thromboplast Time 28.5Sec Sodium Level 140mmol/L Potassium Level 4.7mmol/L Chloride Level 97mmol/L Carbon Dioxide Level 25mmol/L Anion Gap 23 Blood Urea Nitrogen 27mg/dl Creatinine 1.42mg/dl Glucose Level 138mg/dl Calcium Level 9.8mg/dl Troponin I < 0.012ng/ml Current Medications Medications (Trade) Dose Ordered Sig/Lele Route PRN Reason Start Time Stop Time Status Last Admin Dose Admin Nitroglycerin (Nitroglycerin 2% Oint) 1 inch ONCE STAT TD 02/17/17 17:29 02/17/17 17:31 DC 02/17/17 17:33 Nitroglycerin (Nitroglycerin (Sl Tab) 0.4 Mg) 1 tab Q5M UP TO 3 DOSES PRN SL CHEST PAIN 02/17/17 17:30 Procedures/MDM EKG #1 read by me: Rate/Rhythm: Paced rhythm at a rate of 77 Intervals: Normal Impression: Paced rhythm with negative Sgarbossa criteria EKG #2 read by me: Rate/Rhythm: Atrial fibrillation at a normal rate Intervals: Normal Impression: A. fib without ischemia PROCEDURE: XR Chest. CLINICAL INDICATION: Chest Pain. TECHNIQUE: Single frontal chest x-ray. COMPARISON: 05/02/2016 FINDINGS: The lungs are clear of acute infiltrates, edema, effusions, or masses. Sternotomy wires and CABG clips are present. Left-sided dual chamber cardiac pacer in place.. Cardiomegaly with calcific atherosclerosis of the aorta is again noted.. The osseous structures are intact. IMPRESSION: No acute cardiopulmonary disease. Cardiomegaly status post CABG with left-sided cardiac pacer. RPTAT: QQ .Dominick Iglesias MD, MD Date Time Electronically viewed and signed by .Dominick Iglesias MD, on 02/17/2017 17:59 Patient is a 71-year-old male who presents with chest pain. He does have cardiac risk factors. 2 EKGs did not show any signs of ischemia and his chest x -ray shows no pneumonia or pneumothorax. Patient has a negative troponin. I spoke with Dr. Robledo his primary doctor who knows this patient very well. He does not feel the patient requires admission to the hospital and says that he has multiple visits for the same complaint and that he does not feel this is a cardiac event. The patient will be discharged back to his nursing facility. He can return for any worsening symptoms. At this point I doubt acute coronary syndrome, pneumonia, pneumothorax, pulmonary embolism, or aortic dissection. Departure Diagnosis: Primary Impression: Chest pain Chest pain type: unspecified Qualified Code: R07.9 - Chest pain, unspecified type Condition: Fair Patient Instructions: Chest Pain, Uncertain Cause Referrals: MARLO ROBLEDO MD (PCP) Additional Instructions: Call your primary care doctor TOMORROW for an appointment during the next 1-2 days.See the doctor sooner or return here if your condition worsens before your appointment time. BROCK HARRIS MD Feb 17, 2017 19:32
== END 2017-02-17 19:30 | disposition home or self-care (01) ==
LOC: E/R 17:22
DX: R07.9 Chest pain, unspecified (principal); I10 Essential (primary) hypertension; E11.9 Type 2 diabetes mellitus without complications; Z79.82 Long term (current) use of aspirin; Z98.61 Coronary angioplasty status
CPT/HCPCS: 36415; 71010; 80048; 84484; 85025; 85610; 85730; 93005

== ENCOUNTER 2018-01-29 17:38 | Inpatient (IN) | END 2018-02-01 17:45 | DRG 313 ==

== ENCOUNTER 2018-03-20 12:59 | Emergency (ER) | END 2018-03-20 18:34 | disposition home or self-care (01) ==

== ENCOUNTER 2018-03-21 07:23 | Emergency (ER) | END 2018-03-21 12:59 | disposition home or self-care (01) ==

== ENCOUNTER 2018-03-26 13:36 | Emergency (ER) | END 2018-03-26 14:56 | disposition home or self-care (01) ==

== ENCOUNTER 2018-03-31 00:14 | Emergency (ER) | END 2018-03-31 00:45 | disposition home or self-care (01) ==

== ENCOUNTER 2018-04-23 19:53 | Emergency (ER) | END 2018-04-23 22:39 | disposition home or self-care (01) ==

== ENCOUNTER 2018-04-26 19:01 | Emergency (ER) | END 2018-04-26 21:39 | disposition home or self-care (01) ==

== ENCOUNTER 2018-05-01 08:02 | Emergency (ER) | END 2018-05-01 13:11 | disposition home or self-care (01) ==